=== PATIENT | male | born 1980 | race African-American/Black ===

== ENCOUNTER 2016-07-01 10:28 | Emergency (ER) | payer OTHER ==
[2016-07-01 10:32] VITALS: BP 143/82; PULSE 77; TEMP 98.3; BMI 31.4
[2016-07-01] MEDS ORDERED: SODIUM CHLORIDE 1,000 ML IV STA ×2 (11:30→12:30)
--- NOTE | 2016-07-01 11:37 | PDOC ---
History of Present Illness - General Chief Complaint: Diarrhea Stated Complaint: DIARRHEA, DEHYRDRATED Time Seen by Provider: 07/01/16 11:29 History Source: Patient Exam Limitations: No Limitations - History of Present Illness Travel History: No Initial Comments: 07/01/16 11:44 35 yr male c/o diarrhea, and nausea started Wednesday morning after drinking ETOH liquor the night before. Pt states he was vomiting Wednesday that has resolved is now feeling "weak and drained" and is still having loose brown stool. Pt denies fever no abd pain no bleeding from rectum. 07/01/16 11:47 Past History - Past Medical History Allergies/Adverse Reactions: Allergies Allergy/AdvReac Type Severity Reaction Status Date / Time No Known Allergies Allergy Verified 07/01/16 10:32 Home Medications: Ambulatory Orders NK [No Known Home Medication] 07/01/16 Other medical history: NONE - Surgical History Abdominal Surgery: Yes (HERNIA) - Psycho/Social/Smoking Cessation Hx Anxiety: No Suicidal Ideation: No Smoking History: Never smoked Have you smoked in the past 12 months: Yes Number of Cigarettes Smoked Daily: 1 Hx Alcohol Use: Yes (SOCIAL) Drug/Substance Use Hx: No Substance Use Type: None *Physical Exam - Vital Signs Last Vital Signs Temp Pulse Resp BP Pulse Ox 98.3 F 77 20 143/82 100 07/01/16 10:29 07/01/16 10:29 07/01/16 10:29 07/01/16 10:29 07/01/16 10:29 - Physical Exam General Appearance: Yes: Nourished, Appropriately Dressed HEENT: positive: EOMI, ASHLYN, TMs Normal, Pharynx Normal Neck: positive: Supple Respiratory/Chest: positive: Lungs Clear, Normal Breath Sounds Cardiovascular: positive: Regular Rhythm, Regular Rate Gastrointestinal/Abdominal: positive: Normal Bowel Sounds, Soft Musculoskeletal: positive: Normal Inspection Extremity: positive: Normal Capillary Refill, Normal Inspection, Normal Range of Motion Integumentary: positive: Normal Color, Dry, Warm Neurologic: positive: medical claims manager II-XII NML intact, Fully Oriented, Alert, Normal Mood/ Affect, Normal Response, Motor Strength 5/5 ED Treatment Course - LABORATORY CBC & Chemistry Diagram: 07/01/16 11:42 07/01/16 11:42 Progress Note - Progress Note Progress Note: pt feels better after 2 liters of IVF pt ready to be discharged labs are stable WNL no diarrhea while in the ER Medical Decision Making - Medical Decision Making 07/01/16 14:11 cc: diarrhea will give fluids check labs and re-evaluate pt is stable non toxic *DC/Admit/Observation/Transfer Diagnosis at time of Disposition: Diarrhea Qualifiers: Diarrhea type: unspecified type Qualified Code(s): R19.7 - Diarrhea, unspecified - Discharge Dispostion Disposition: HOME Condition at time of disposition: Good - Referrals Referrals: Lukas Correa MD [Staff Physician] - - Patient Instructions Additional Instructions: please drink pleanty of water to stay hydrated eat a bland diet and eat rice, banannas, toast and apples follow with your doctor if symptoms worsen or persist or follow with the automatic machines supervisor Dr. Correa for follow up next week
[2016-07-01] MEDS ORDERED: FAMOTIDINE 20 MG/50 ML IVPB 50 ML IVPB ONE ×2 (11:43→11:53)
[2016-07-01 12:28] LABS: BASOPHIL 0.8 % (0-2.0); EOSINOPHIL 3.5 % (0-4.5); MCH 27.9 pg (25.7-33.7); MCHC 33.3 g/dl (32.0-35.9); MEAN CELL VOLUME 83.7 fl (80-96); MEAN PLT VOLUME 9.1 fl (7.5-11.1); NEUTROPHILS 31.5 % (42.8-82.8); PLATELET COUNT 146 K/MM3 (134-434); RDW 13.3 % (11.9-15.9)
[2016-07-01 12:32] LABS: URINE APPEARANCE CLEAR; URINE BILIRUBIN NEGATIVE (NEGATIVE); URINE BLOOD NEGATIVE (NEGATIVE); URINE COLOR YELLOW; URINE GLUCOSE (UA) NEGATIVE (NEGATIVE); URINE KETONE NEGATIVE (NEGATIVE); URINE LEUK ESTERASE NEGATIVE (NEGATIVE); URINE NITRITE NEGATIVE (NEGATIVE); URINE PROTEIN NEGATIVE (NEGATIVE); URINE UROBILINOGEN NEGATIVE E.U./dl (0.2-1.0)
[2016-07-01 12:58] LABS: ALBUMIN 3.9 g/dl (3.4-5.0); ALK PHOS 63 U/L (45-117); AMYLASE 84 U/L (25-115); ANION GAP 11 (8-16); BILIRUBIN,TOTAL 0.4 mg/dL (0.2-1.0); CALCIUM 8.5 mg/dL (8.5-10.1); CO2 25 mmol/L (21-32); COCKROFT - GAULT 162.22; CREATININE 0.9 mg/dL (0.7-1.3); GLUCOSE,RANDOM 105 mg/dL (74-106); SGOT/AST 27 U/L (15-37); SGPT/ALT 59 U/L (12-78); TOT PROT 6.7 g/dl (6.4-8.2)
== END 2016-07-01 14:22 | disposition home or self-care (01) ==
LOC: JER 10:28
PROC: 3E0337Z Introduction of Electrolytic and Water Balance Substance into Peripheral Vein, Percutaneous Approach (ICD-10-PCS; principal; 2016-07-01)
PROC: 3E033GC Introduction of Other Therapeutic Substance into Peripheral Vein, Percutaneous Approach (ICD-10-PCS; 2016-07-01)
DX: R19.7 Diarrhea, unspecified (principal)
CPT/HCPCS: 36415; 80053; 81003; 82150; 83690; 85025; 96361; 96365; 99282-25

== ENCOUNTER 2016-12-18 20:18 | Emergency (ER) | payer OTHER ==
[2016-12-18 20:22] VITALS: BP 141/77; PULSE 79; TEMP 98; BMI 32.1
[2016-12-18] MEDS ORDERED: KETOROLAC TROMETHAMINE 30 MG/1 ML VIAL IVPUSH ONE (20:55)
[2016-12-18] MEDS ORDERED: SODIUM CHLORIDE 1,000 ML IV STA (20:55)
[2016-12-18] MEDS ORDERED: ONDANSETRON 4 MG/2 ML VIAL IVPUSH ONE (20:55)
--- NOTE | 2016-12-18 20:55 | PDOC ---
History of Present Illness - General Chief Complaint: Pain Stated Complaint: STOMACH PAIN Time Seen by Provider: 12/18/16 20:41 History Source: Patient Exam Limitations: No Limitations - History of Present Illness Initial Comments: 12/18/16 22:28 Patient is a 36-year-old male with no past medical history presents to the emergency department today complaining of abdominal cramping and diarrhea for 2 days. Patient states that he recently travel to the [place] and thinks he has food poisoning. He denies eating any new foods or drinking any unclean water. Denies nausea and vomiting. He states that he has been having multiple watery diarrhea-like movements since Wednesday. He last ate at approximately 3 PM today and had rice and beans. Denies fevers, chills, fatigue , malaise, lethargy, weakness, cough, runny nose, sore throat, shortness of breath, chest pain, palpitations, nausea, vomiting, frequency, urgency and hematuria. No recent abx use. Past History - Travel Traveled outside of the country in the last 30 days: Yes If so, where?: [facility] Close contact w/someone who was outside of country & ill: No - Past Medical History Allergies/Adverse Reactions: Allergies Allergy/AdvReac Type Severity Reaction Status Date / Time No Known Allergies Allergy Verified 12/18/16 20:22 Home Medications: Ambulatory Orders Sulfamethoxazole/Trimethoprim [Bactrim Ds Tablet] 1 each PO BID #10 tablet 12/18 Other medical history: denies - Surgical History Abdominal Surgery: Yes (HERNIA) - Suicide/Smoking/Psychosocial Hx Smoking History: Current some day smoker Have you smoked in the past 12 months: Yes Number of Cigarettes Smoked Daily: 1 Information on smoking cessation initiated: No Hx Alcohol Use: Yes (SOCIAL) Drug/Substance Use Hx: No Substance Use Type: None Review of Systems - Review of Systems Able to Perform ROS?: Yes Comments:: 12/18/16 22:26 CONSTITUTIONAL: Absent: fever, chills, diaphoresis, generalized weakness, malaise, loss of appetite HEENT: Absent: rhinorrhea, nasal congestion, throat pain, throat swelling, difficulty swallowing, mouth swelling, ear pain, eye pain, visual Changes CARDIOVASCULAR: Absent: chest pain, loss of consciousness, palpitations, irregular heart rate, peripheral edema RESPIRATORY: Absent: cough, shortness of breath, dyspnea with exertion, orthopnea, wheezing, stridor, hemoptysis GASTROINTESTINAL: Present: abdominal cramping, diarrhea. Absent: abdominal distension, nausea, vomiting, constipation, melena, hematochezia GENITOURINARY: Absent: dysuria, frequency, urgency, hesitancy, hematuria, flank pain, genital pain MUSCULOSKELETAL: Absent: myalgia, arthralgia, joint swelling SKIN: Absent: rash, itching, pallor HEMATOLOGIC/IMMUNOLOGIC: Absent: easy bleeding, easy bruising, lymphadenopathy, frequent infections ENDOCRINE: Absent: unexplained weight gain, unexplained weight loss, heat intolerance, cold intolerance NEUROLOGIC: Absent: headache, focal weakness or paresthesias, dizziness, unsteady gait, seizure, mental status changes, bladder or bowel incontinence PSYCHIATRIC: Absent: anxiety, depression, suicidal or homicidal ideation, hallucinations. Is the patient limited Thai proficient: No *Physical Exam - Vital Signs Last Vital Signs Temp Pulse Resp BP Pulse Ox 98 F 79 18 141/77 99 12/18/16 20:20 12/18/16 20:20 12/18/16 20:20 12/18/16 20:20 12/18/16 20:20 - Physical Exam Comments: 12/18/16 22:26 GENERAL: Well developed, well nourished. Awake and alert. No acute distress. HEENT: Normocephalic, atraumatic. PERRLA, EOMI. No conjunctival pallor. Sclera are non- icteric. Moist mucous membranes. Oropharynx is clear. NECK: Supple. Full ROM. No JVD. Carotid pulses 2+ and symmetric, without bruits. No thyromegaly. No lymphadenopathy. CARDIOVASCULAR: Regular rate and rhythm. No murmurs, rubs, or gallops. Distal pulses are 2+ and symmetric. PULMONARY: No evidence of respiratory distress. Lungs clear to auscultation bilaterally. No wheezing, rales or rhonchi. ABDOMINAL: Diffuse TTP. Soft. Non-distended. No rebound or guarding. No organomegaly. Normoactive bowel sounds. MUSCULOSKELETAL Normal range of motion at all joints. No bony deformities or tenderness. No CVA tenderness. EXTREMITIES: No cyanosis. No clubbing. No edema. No calf tenderness. SKIN: Warm and dry. Normal capillary refill. No rashes. No jaundice. NEUROLOGICAL: Alert, awake, appropriate. Cranial nerves 2-12 intact. No deficits to light touch and temperature in face, upper extremities and lower extremities. No motor deficits in the in face, upper extremities and lower extremities. Normoreflexic in the upper and lower extremities. Normal speech. Toes are down- going bilaterally. Gait is normal without ataxia. PSYCHIATRIC: Cooperative. Good eye contact. Appropriate mood and affect. ED Treatment Course - LABORATORY CBC & Chemistry Diagram: 12/18/16 21:35 12/18/16 21:35 Medical Decision Making - Medical Decision Making 12/18/16 22:29 Patient is a 28-year-old male with no past medical history presents to the emergency department today with abdominal cramping and diarrhea after traveling to the [place]. Most likely a travelers diarrhea. Can also be gastroenteritis. Less likely pancreatitis or appendicitis given diffuse symptoms and no fevers. 1.CBC, CMP, PT/INR, lipase, UA, UC 2.IV fluids, Zofran, Toradol 3.reevaluate 12/19/16 00:07 Pt. feeling better after fluids and medication. Lab work consistent with viral infection. Most likely travelers diarrhea. Will d/c home with antibiotics at this time. *DC/Admit/Observation/Transfer Diagnosis at time of Disposition: Travelers' diarrhea - Discharge Dispostion Disposition: HOME Condition at time of disposition: Improved Admit: No - Prescriptions Prescriptions: Sulfamethoxazole/Trimethoprim [Bactrim Ds Tablet] 1 each PO BID #10 tablet - Patient Instructions Printed Discharge Instructions: DI for Diarrhea and Traveler's Diarrhea -- Adult Additional Instructions: Drink plenty of fluids. Avoid dairy products as this can make diarrhea worse. Eat a bland diet (bananas, plain rice, toast, apple sauce). You may take ibupfroen as needed for cramping. You were prescribed antibiotics. Take the whole prescription even if you feel better. follow up with your primary care doctor in one week. Return to the ED if you have worsening fevers, chills, nausea, vomiting, weakness, or any changes in your symptoms
[2016-12-18] MEDS ORDERED: KETOROLAC TROMETHAMINE 60 MG/2 ML VIAL ONE (21:31)
[2016-12-18] MEDS ORDERED: ONDANSETRON *ODT* 4 MG TABLET ONE (21:31)
[2016-12-18 21:57] LABS: BASOPHIL 0.6 % (0-2.0); EOSINOPHIL 1.9 % (0-4.5); MCHC 33.8 g/dl (32.0-35.9); MEAN PLT VOLUME 8.6 fl (7.5-11.1); NEUTROPHILS 40.8 % (42.8-82.8); PLATELET COUNT 177 K/MM3 (134-434); RDW 13.9 % (11.9-15.9); WHITE BLOOD COUNT 3.3 K/mm3 (4.0-10.0)
[2016-12-18 22:37] LABS: INR 1.02 (0.82-1.09); PROTHROMBIN TIME (PATIENT) 11.5 SEC (9.98-11.88)
[2016-12-18 22:46] LABS: URINE APPEARANCE CLEAR; URINE BILIRUBIN NEGATIVE (NEGATIVE); URINE BLOOD NEGATIVE (NEGATIVE); URINE COLOR LTYELLOW; URINE GLUCOSE (UA) NEGATIVE (NEGATIVE); URINE KETONE NEGATIVE (NEGATIVE); URINE NITRITE NEGATIVE (NEGATIVE); URINE PROTEIN NEGATIVE (NEGATIVE); URINE UROBILINOGEN NEGATIVE mg/dL (0.2-1.0)
[2016-12-18 22:51] LABS: ALBUMIN 4.1 g/dl (3.4-5.0); ANION GAP 9 (8-16); CALCIUM 8.7 mg/dL (8.5-10.1); CO2 26 mmol/L (21-32); CREATININE 1.1 mg/dL (0.7-1.3); GLUCOSE,RANDOM 89 mg/dL (74-106); SGPT/ALT 56 U/L (12-78)
[2016-12-18 22:53] LABS: ALK PHOS 50 U/L (45-117); BILIRUBIN,TOTAL 0.4 mg/dL (0.2-1.0)
[2016-12-18 22:57] LABS: SGOT/AST 22 U/L (15-37)
[2016-12-19 12:01] LABS: URINE LEUK ESTERASE Negative (NEGATIVE)
== END 2016-12-18 23:54 | disposition home or self-care (01) ==
LOC: JER 20:18
PROC: 3E0337Z Introduction of Electrolytic and Water Balance Substance into Peripheral Vein, Percutaneous Approach (ICD-10-PCS; principal; 2016-12-18)
PROC: 3E0333Z Introduction of Anti-inflammatory into Peripheral Vein, Percutaneous Approach (ICD-10-PCS; 2016-12-18)
DX: A04.9 Bacterial intestinal infection, unspecified (principal); B96.89 Other specified bacterial agents as the cause of diseases classified elsewhere
CPT/HCPCS: 36415; 80053; 81003; 83690; 85025; 85610; 87086; 96361; 96374; 99283-25